=== PATIENT | male | born 1940 | race Caucasian/White ===

== ENCOUNTER 2018-12-08 10:01 | Inpatient (IN) ==
[2018-12-07 10:52] LABS: BASO# 0.03 X1000 (0.0-0.2); BASO% 0.4 % (0.0-0.8); EOS# 0.77 X1000 (0.0-0.7); EOS% 10.1 % (0.0-10.0); HEMATOCRIT 37.7 % (42.0-52.0); HEMOGLOBIN 12.4 g/dL (14.0-18.0); IMM GRAN# 0.03 X1000 (0.0-0.04); IMM GRAN% 0.4 % (0.0-0.5); LYMPH# 1.25 X1000 (1.2-3.4); LYMPH% 16.3 % (20.5-51.1); MCH 29.5 PG (27-31); MCHC 32.9 g/dL (33-37); MCV 89.8 FL (81-99); MONO# 0.44 X1000 (0.11-0.59); MONO% 5.8 % (1.7-9.3); MPV 8.1 FL (7.4-10.4); NEUT# 5.13 X1000 (1.4-6.5); PLT 310 X1000 (130-400); RDW 13.3 % (11.5-14.5); WBC 7.65 X1000 (4.8-10.8)
[2018-12-07 10:57] LABS: URINE SOURCE CLEAN CATCH
[2018-12-07 11:01] LABS: BILIRUBIN URINE NEGATIVE (NEGATIVE); BLOOD URINE NEGATIVE (NEGATIVE); COLOR YELLOW; GLUCOSE URINE NEGATIVE (NEGATIVE); KETONE URINE NEGATIVE (NEGATIVE); LEUKOCYTES URINE NEGATIVE (NEGATIVE); NITRITE URINE NEGATIVE (NEGATIVE); PROTEIN URINE TRACE mg/dL (NEGATIVE); SP GRAVITY URINE 1.004; TURBIDITY URINE CLEAR (CLEAR); UROBILINOGEN URINE NORMAL (NORMAL)
[2018-12-07 11:02] LABS: UR EPITHELIAL CELLS <10 /HPF (<10); URINE BACTERIA NEGATIVE /HPF; URINE RBC <10 /HPF (<10); URINE WBC <10 /HPF (<10)
[2018-12-07 11:12] LABS: INR 0.89; PROTIME 12.7 Seconds (11.0-16.0)
[2018-12-07 11:13] LABS: PTT 29.9 Seconds (22.3-41.8)
--- NOTE | 2018-12-07 11:25 | EKG Report ---
Test Performed on : 12/07/2018 10:28:49 AM Test Reason : PAT Blood Pressure : / mmHG Vent. Rate : 063 BPM Atrial Rate : 063 BPM P-R Int : 216 ms QRS Dur : 100 ms QT Int : 384 ms P-R-T Axes : 085 050 065 degrees QTc Int : 392 ms Sinus rhythm. with 1st degree AV block. with premature atrial complexes. Otherwise normal ECG No previous ECGs available Confirmed by John PINEDA, Berny Burt ([id number]) on 12/09/2018 9:01:29 AM
[2018-12-07 11:29] LABS: AGAP 10; BUN 14 mg/dL (8-22); CALCIUM 10.2 mg/dL (8.8-10.2); CHLORIDE 97 mmol/L (98-107); COSMO 272; ESTIMATED GFR > 60; GLUCOSE 121 mg/dL (70-104); POTASSIUM 5.7 mmol/L (3.5-5.1); SODIUM 135 mmol/L (136-145); TCO2 28 mmol/L (25-35)
[2018-12-08] MEDS ORDERED: PEPCID ONE (10:48)
[2018-12-08] MEDS ORDERED: COLACE ONE (10:48)
[2018-12-08] MEDS ORDERED: REGLAN ONE (10:48)
[2018-12-08] MEDS ORDERED: LYRICA ONE (10:49)
[2018-12-08] MEDS ORDERED: CELEBREX ONE (10:49)
[2018-12-08] MEDS ORDERED: KEFZOL 1 GM/D5W 1 GM/50 ML IVPB ONE (10:50)
[2018-12-08] MEDS ORDERED: LR 1,000 ML ONE (10:50)
[2018-12-08] MEDS ORDERED: FENTANYL ONE (12:49)
[2018-12-08] MEDS ORDERED: XYLOCAINE-MPF 2% ONE ×2 (12:50→14:15)
[2018-12-08] MEDS ORDERED: MARCAINE 0.5% PF ONE (13:49)
[2018-12-08] MEDS ORDERED: EXPAREL 1.3% ONE (13:49)
[2018-12-08] MEDS ORDERED: ZOFRAN ONE (14:15)
[2018-12-08] MEDS ORDERED: OFIRMEV 1000 MG/ISOTONIC SOLN 1,000 MG/100 ML BOTTLE ONE (14:15)
[2018-12-08] MEDS ORDERED: DECADRON ONE (14:15)
[2018-12-08] MEDS ORDERED: AMIDATE ONE (14:16)
[2018-12-08] MEDS ORDERED: NEO-SYNEPHRINE ONE (14:38)
[2018-12-08] MEDS ORDERED: SENOKOT PO PRN (16:34)
[2018-12-08] MEDS ORDERED: OXY IR PO PRN (16:34)
[2018-12-08] MEDS ORDERED: NARCAN ONE (18:14)
--- NOTE | 2018-12-08 18:34 | OPERATIVE NOTE ---
PROCEDURE DATE: 12/08/2018 PREOPERATIVE DIAGNOSIS: Left posttraumatic ankle osteoarthritis. POSTOPERATIVE DIAGNOSIS: Left posttraumatic ankle osteoarthritis. PROCEDURE: Left total ankle arthroplasty. SURGEON: Johan Nathan MD INVESTIGATOR UTILITY BILL COMPLAINTS: JENNY Nova, who was an integral part of the case, helping with all aspects of the case and helping to increase our OR efficiency greatly. ANESTHESIA: General with LMA. TOURNIQUET TIME: About 130 minutes. IMPLANTS: [employer] [place] total ankle, size 3 tibia, size 2 talus, and a 6 mm poly. DISPOSITION: To PACU, hemodynamically stable. INDICATION FOR PROCEDURE: Mr. Quijano is an 78-year-old male, whom I have seen in clinic for evaluation of this left ankle pain. He has been having pain for a long time. He has gone through a lot of nonoperative treatment, and he was ready for operative intervention so I went over with him nonoperative and operative interventions, and he wanted to pursue total ankle arthroplasty. He expressed understanding and wished to proceed. DESCRIPTION OF PROCEDURE: Mr. Quijano was identified in the preoperative holding area. The left ankle was marked as the correct surgical site. He was then wheeled to the operating room, placed supine on the operating table. All bony prominences were well padded. He was induced under general anesthesia. LMA was placed. A tourniquet was placed to the left thigh. Left lower extremity then prepped with chlorhexidine gluconate scrub and then ChloraPrep, and draped in the normal sterile fashion. Surgical pause was performed. We identified the correct patient, correct side, and the correct procedure. Preoperative antibiotics were given. Esmarch was used to exsanguinate the left lower extremity and tourniquet was inflated to 300 mmHg. We started with an anterior approach to the ankle with longitudinal incision. Dissection was carried down between the EHL and the tibialis anterior tendon. The tibialis anterior tendon was kept in its sheath the whole time and not exposed. We went down in between the neurovascular bundle. I was careful not to disrupt the neurovascular bundle. I made an arthrotomy and came down on the ankle joint. There were a lot of osteophytes all around that whole area so we removed all of the osteophytes anteriorly and that exposed our ankle joint. We then started with our instrumentation. I used the medial gutter guide to get my rotation. I made a small incision at the tibial tubercle. I put the tubercle pin in at the same rotation at that medial malleolus guide. I then put my alignment jig on and then I put the distal tibia pin in for my alignment jig. We then went through the steps to get our varus and valgus set and a good rotation set and get our sagittal alignment set as well. Once we had the tibia where we wanted it, I then pinned the tibial cut guide into place. We checked everything after we got it into place with fluoroscopic imaging and it looked good. I then made my cuts on the tibia. It did take me a little bit to get out all of that posterior bone because he had a lot of posterior bone that was there. Once I got all the bone out, fluoroscopic imaging showed that we had cleaned out that whole area and it looked really good. I then turned my attention to the talus. We got the cut guide for the talus on and the foot up in a neutral position. I then pinned the talus in place and made a flat cut on it. I then got my talar dome guide on. We sized it for a size 2 and then pinned that in position. I then used the tibial chamfer cut guide and made all of my chamfer drills and cuts. I took that off and then I rongeured that bone out and then used the talar dome rasp and domed the talus. I then pinned the talar guide into place, and once we got a good position of it, I drilled the pegs for the talus. I then got the tibial guide into place. Once we got a good position of it, I pinned it and then impacted where the pegs would be for the tibial component. I then irrigated everything copiously with normal saline. I then impacted the tibial component in and then impacted the talar component in. I then placed my poly and then the clip. He had really good range of motion. I did not see any impingement. I did clean out the gutters just a little bit more and our final images showed that the gutters were nice and clean. I was very happy with our instrumentation. On that lateral view, it looked like both the talus and the tibia were down very nicely. We then closed everything in a layered fashion with 0 Vicryl for the retinacular layer, 2- 0 Vicryl for the subcutaneous, and nylon on the skin. Adaptic, 4x4's, ABD, Sof-Rol, and a posterior splint were applied. Tourniquet was let down. Patient had good capillary refill return to the toes. He was then awoken from general anesthesia, moved to his own bed ,and taken to PACU in stable condition. Postoperatively, he will be nonweightbearing left lower extremity. He will be admitted overnight. If everything goes well, then he will be discharged home tomorrow. We did use Exparel at the end of the case for postoperative pain relief. cc: Johan Nathan MD
[2018-12-09] MEDS: KEFZOL 1 GM/D5W 1 GM/50 ML IVPB IV SCH ×2 (01:38→06:45)
[2018-12-09] MEDS ORDERED: LOVENOX SUBQ SCH (06:00)
[2018-12-09 07:22] VITALS: BP 107/52
--- NOTE | 2018-12-09 09:31 | ORTHOPAEDICS PROGRESS NOTE ---
DATE: 12/09/2018 SUBJECTIVE: Mr. Quijano is lying in bed this morning. Pain is well controlled. He gets some pain he says every now and then, but it has been very tolerable. OBJECTIVE: Left Lower Extremity: He is able to move the toes well. His splint is clean, dry, and intact. He has good sensation to light touch to the toes and good capillary refill to the toes. ASSESSMENT: Status post left total ankle replacement. PLAN: I think Mr. Quijano is doing great. He will be able to be discharged home today, and I will plan to see him in 1 week. He is nonweightbearing to the left lower extremity. When we see him back in clinic, he will need 3 views standing of the left ankle. Will plan on getting him weightbearing at that time. cc: Johan Nathan MD
--- NOTE | 2018-12-09 13:59 | DISCHARGE SUMMARY ---
ADMISSION DATE: 12/08/2018 DISCHARGE DATE: 12/09/2018 ADMITTING DIAGNOSIS: Left posttraumatic ankle arthritis. DISCHARGE DIAGNOSIS: Left posttraumatic ankle arthritis. PROCEDURE: On 12/08/2018, Dr. Nathan performed a left total ankle arthroplasty. HOSPITAL COURSE: Mr. Quijano is an 78-year-old male who Dr. Nathan had been following in clinic for evaluation of left ankle. He had had a traumatic injury about 40 years prior, and since then he has developed ankle arthritis. He had been through a lot of nonoperative treatment, which includes immobilization, anti-inflammatories, injections, and physical therapy. Unfortunately, none of that relieved his pain. He was having a lot of trouble just ambulating and with his activities of daily living so it was decided to proceed with surgical intervention. Dr. Nathan discussed the risks and benefits with the patient and the family. On 12/08/2018, we proceeded with a left total ankle. He was taken to operating room where satisfactory anesthesia was obtained. He tolerated the procedure well, and was transferred to recovery room. After satisfactory recovery, he was transferred to [address] [place] [id number]. He has had an uneventful postoperative course. He is nonweightbearing to this left lower extremity. He has eaten without any trouble and he has voided. His current vital signs are 98.1, pulse 55, respirations 18, and blood pressure 107/52. He is 100% on room air. He has been up and gotten to the bedside commode without any trouble. He seems very well this morning, and his pain is well controlled. DISCHARGE MEDICATIONS: 1. Lovenox 40 mg subcutaneous daily. 2. Percocet 5 mg p.o. every 6 hours as needed for pain. 3. Senokot 1 p.o. b.i.d. as needed for constipation. 4. Zetia 10 mg p.o. daily. 5. Fenofibrate 160 mg p.o. daily. DISCHARGE DISPOSITION: Mr. Quijano is being discharged home. He has a good supportive family, although his does have some dementia. He is requesting a walker to help him mobilize through the home. His will be unable to assist him to and from the bathroom and things like that. He will be nonweightbearing at least for the first week. We have him in a posterior splint. That will remain on until his follow-up appointment. We will do the Lovenox for DVT prophylaxis. We will do the Percocet for pain control. Should he have any questions or concerns, he is welcome to call the office. He is not to get the splint wet. He understands again that he is nonweightbearing to his left lower extremity. He is going to call the office for any questions or concerns. Dictated by JENNY Nova for Johan Nathan MD cc: JENNY Nova MD
== END 2018-12-09 13:16 | disposition home or self-care (01) | DRG 469 ==
LOC: SURHOLD 10:01 → EDSTATUS 13:15 → 4N 14:39
PROVIDERS: ADMIT Orthopaedic Surgery; ATTEND Orthopaedic Surgery
CPT/HCPCS: 76000; 80048; 81001; 85025; 85610; 85730; 86850; 86900; 86901; 88305; 88311; 93005; 93010; 97110; 97162; 97530; A9270; C9290; J0131; J0690; J1100; J1650; J2310; J2370; J2405; J3010; J7120; S0020